=== PATIENT | female | born 1985 | race Caucasian/White ===

== ENCOUNTER → 2018-11-30 | Outpatient (CLI) | payer OTHER ==
[~2018-11-30] MED LIST: AMOX500 PO; CIPR500 PO; DEPO; FLUT.05NI; HYDCOR2.5B TOP; IBUP600 PO; NAPR500EC PO; OXYACE5T PO; PHENA200 PO; RXOXYACE PO; SULTRIDS PO; TRAM50 PO; ULTRAVATE TP
== END | disposition home or self-care (01) ==
LOC: LAB SHORT 15:05 → LAB EV 15:05
DX: N39.0 Urinary tract infection, site not specified (principal)
CPT/HCPCS: 87077; 87086; 87186

== ENCOUNTER 2019-11-26 16:35 | Inpatient (IN) | payer OTHER ==
[~2019-11-26] VITALS: Ht 160 cm; Wt 90.7 kg
[2019-11-26] MEDS ORDERED: EXPECTA PRENAT1 EACH PO (17:49)
[2019-11-26] MEDS ORDERED: TUMS500 MG (17:50)
[2019-11-26 17:58] LABS: BASOPHILS ABSOLUTE AUTO 0.04 K/mm3 (0.00-0.23); BASOPHILS PERCENT AUTO 0 % (0-2); EOSINOPHILS ABSOLUTE AUTO 0.02 K/mm3 (0.00-0.68); EOSINOPHILS PERCENT AUTO 0 % (0-6); Hematocrit 41.7 % (33.0-51.0); Hemoglobin 13.9 g/dL (11.5-16.0); IMMATURE GRAN PERCENT AUTO 1 % (0-1); LYMPHOCYTES ABSOLUTE AUTO 2.16 K/mm3 (0.84-5.20); LYMPHOCYTES PERCENT AUTO 12 % (21-46); MONOCYTES ABSOLUTE AUTO 1.29 K/mm3 (0.16-1.47); MONOCYTES PERCENT AUTO 7 % (4-13); Mean Corpuscular HGB 30.2 pg (26.0-34.0); Mean Corpuscular HGB Conc 33.3 g/dL (31.5-36.5); Mean Corpuscular Volume 91 fL (80-100); Mean Platelet Volume 9.6 fL (9.1-12.4); NEUTROPHILS ABSOLUTE AUTO 13.87 K/mm3 (1.96-9.15); NEUTROPHILS PERCENT AUTO 79 % (41-73); Platelet Count 348 K/mm3 (150-400); RDW Coefficient Variation 13.4 % (11.7-14.2); RDW Standard Deviation 44.8 fL (35.1-46.3); White Blood Cell Count 17.48 K/mm3 (4.00-11.30)
--- NOTE | 2019-11-26 19:17 | NUR ---
HERE WITH REPORT OF CONTRACTIONS ALL DAY THAT INCREASED IN SEVERITY AND FREQUENCY OVER THE PAST HOUR. ADMITTED IN ACTIVE LABOR
[2019-11-28 05:35] LABS: BASOPHILS ABSOLUTE AUTO 0.03 K/mm3 (0.00-0.23); BASOPHILS PERCENT AUTO 0 % (0-2); EOSINOPHILS PERCENT AUTO 1 % (0-6); Hemoglobin 10.7 g/dL (11.5-16.0); IMMATURE GRAN ABSOLUTE AUTO 0.12 K/mm3 (0.00-0.10); IMMATURE GRAN PERCENT AUTO 1 % (0-1); LYMPHOCYTES PERCENT AUTO 20 % (21-46); MONOCYTES ABSOLUTE AUTO 1.76 K/mm3 (0.16-1.47); MONOCYTES PERCENT AUTO 11 % (4-13); Mean Corpuscular HGB 30.1 pg (26.0-34.0); Mean Corpuscular HGB Conc 32.4 g/dL (31.5-36.5); Mean Corpuscular Volume 93 fL (80-100); Mean Platelet Volume 9.6 fL (9.1-12.4); NEUTROPHILS ABSOLUTE AUTO 10.45 K/mm3 (1.96-9.15); NEUTROPHILS PERCENT AUTO 67 % (41-73); Platelet Count 279 K/mm3 (150-400); RDW Coefficient Variation 13.6 % (11.7-14.2); Red Blood Cell Count 3.55 M/mm3 (3.80-5.20); White Blood Cell Count 15.56 K/mm3 (4.00-11.30)
[2019-11-28] MEDS ORDERED: IBUP800 PO (09:52)
--- NOTE | 2019-11-28 10:58 | NUR ---
DISCHARGE INSTRUCTIONS, WRITTEN AND VERBAL, GIVEN TO PT. ANSWERED ALL QUESTIONS AND CONCERNS. IV DISCONTINUED BY KNOCKOUT MACHINE OPERATOR. PT REFUSED NEEDING MOTRIN PRESCRIPTION. FOLLOW UP APPOINTMENT SCHEDULED. ALL PERSONAL BELONGINGS RETURNED. PT IS DISCHARGED HOME, DRIVEN BY Paola JENNINGS.
== END 2019-11-28 11:05 | disposition home or self-care (01) | DRG 807 ==
LOC: OBS 16:35 → BC 16:35 → OBS 17:24 → BC 17:26
PROVIDERS: ADMIT Nurse Practitioner Obstetrics & Gynecology
PROC: 10E0XZZ Delivery of Products of Conception, External Approach (ICD-10-PCS; principal; 2019-11-27)
PROC: 0UQG7ZZ Repair Vagina, Via Natural or Artificial Opening (ICD-10-PCS; 2019-11-27)
PROC: 3E0R3BZ Introduction of Anesthetic Agent into Spinal Canal, Percutaneous Approach (ICD-10-PCS; 2019-11-27)
DX: O71.4 Obstetric high vaginal laceration alone (principal); Z37.0 Single live birth; Z3A.40 40 weeks gestation of pregnancy
CPT/HCPCS: 36415; 51702; 59025; 85025; 86900; 86901; J1885; J2001; J2210; J2405; J3010; J7120

== ENCOUNTER 2025-06-03 01:00 | Emergency (ER) | payer OTHER ==
[~2025-06-03] VITALS: Ht 162.6 cm; Wt 61.2 kg
[~2025-06-03 01:00] MED LIST changes: +EXPECTA PRENAT1 EACH PO; +IBUP800 PO; +TUMS500 MG
[2025-06-03 02:04] LABS: Alanine Aminotransfer (ALT/SGP 19.0 U/L (12-78); Albumin, Blood 4.1 g/dL (3.4-5.0); Albumin/Globulin Ratio 1.2 (0.8-1.8); Anion Gap 8.0 mmol/L (3-11); Aspartate Aminotrans (AST/SGOT 9.0 U/L (12-37); Bilirubin, Total 0.3 mg/dL (0.1-1.0); Blood Urea Nitrogen 11.0 mg/dL (8-24); CO2, Blood 24.0 mmol/L (21-32); Calcium, Blood 9.0 mg/dL (8.5-10.1); Chloride, Blood 108.0 mmol/L (98-108); Creatinine, Blood 0.63 mg/dL (0.40-1.00); Globulin, Blood 3.4 g/dL (2.2-4.0); Glucose, Blood 146.0 mg/dL (70-99); Potassium, Blood 3.1 mmol/L (3.5-5.5); Sodium, Blood 137.0 mmol/L (136-145); Total Protein, Blood 7.5 g/dL (6.4-8.2)
[2025-06-03 02:16] LABS: BASOPHILS ABSOLUTE AUTO 0.04 K/mm3 (0.00-0.23); BASOPHILS PERCENT AUTO 0 % (0-2); EOSINOPHILS ABSOLUTE AUTO 0.02 K/mm3 (0.00-0.68); EOSINOPHILS PERCENT AUTO 0 % (0-6); Hematocrit 37.5 % (33.0-51.0); Hemoglobin 13.0 g/dL (11.5-16.0); IMMATURE GRAN ABSOLUTE AUTO 0.02 K/mm3 (0.00-0.10); IMMATURE GRAN PERCENT AUTO 0 % (0-1); LYMPHOCYTES ABSOLUTE AUTO 2.74 K/mm3 (0.84-5.20); LYMPHOCYTES PERCENT AUTO 25 % (21-46); MONOCYTES ABSOLUTE AUTO 0.98 K/mm3 (0.16-1.47); MONOCYTES PERCENT AUTO 9 % (4-13); Mean Corpuscular HGB Conc 34.7 g/dL (31.5-36.5); Mean Corpuscular Volume 88 fL (80-100); NEUTROPHILS ABSOLUTE AUTO 7.19 K/mm3 (1.96-9.15); NEUTROPHILS PERCENT AUTO 65 % (41-73); NRBC ABSOLUTE 0.00 K/mm3 (0.00-0.02); NRBC Auto 0.0 /100 WBC (0.0-0.2); Platelet Count 334 K/mm3 (150-400); RDW Coefficient Variation 12.1 % (11.7-14.2); RDW Standard Deviation 39.2 fL (35.1-46.3)
[2025-06-03] MEDS ORDERED: POTA20PAC PO (03:19)
[2025-06-03 03:45] VITALS: BP 120/90
== END 2025-06-03 03:52 | disposition home or self-care (01) ==
LOC: ER 01:00
PROVIDERS: Student in an Organized Health Care Education/Training Program
DX: R55 Syncope and collapse (principal); E87.6 Hypokalemia; F17.200 Nicotine dependence, unspecified, uncomplicated; Z88.1 Allergy status to other antibiotic agents
CPT/HCPCS: 80053; 85025; 93005; 93010; 99284-25; A9270

== ENCOUNTER 2025-06-07 13:00 | Emergency (ER) | payer OTHER ==
[~2025-06-07] VITALS: Ht 162.6 cm; Wt 61.2 kg
[~2025-06-07 13:00] MED LIST changes: +POTA20PAC PO
[2025-06-07 14:28] LABS: BASOPHILS ABSOLUTE AUTO 0.03 K/mm3 (0.00-0.23); BASOPHILS PERCENT AUTO 0 % (0-2); EOSINOPHILS ABSOLUTE AUTO 0.00 K/mm3 (0.00-0.68); EOSINOPHILS PERCENT AUTO 0 % (0-6); Hematocrit 41.2 % (33.0-51.0); Hemoglobin 14.0 g/dL (11.5-16.0); IMMATURE GRAN ABSOLUTE AUTO 0.05 K/mm3 (0.00-0.10); IMMATURE GRAN PERCENT AUTO 0 % (0-1); LYMPHOCYTES ABSOLUTE AUTO 1.49 K/mm3 (0.84-5.20); LYMPHOCYTES PERCENT AUTO 13 % (21-46); MONOCYTES ABSOLUTE AUTO 0.78 K/mm3 (0.16-1.47); MONOCYTES PERCENT AUTO 7 % (4-13); Mean Corpuscular HGB Conc 34.0 g/dL (31.5-36.5); Mean Corpuscular Volume 91 fL (80-100); NEUTROPHILS ABSOLUTE AUTO 9.44 K/mm3 (1.96-9.15); NEUTROPHILS PERCENT AUTO 80 % (41-73); NRBC ABSOLUTE 0.00 K/mm3 (0.00-0.02); NRBC Auto 0.0 /100 WBC (0.0-0.2); Platelet Count 332 K/mm3 (150-400); RDW Coefficient Variation 12.3 % (11.7-14.2); RDW Standard Deviation 40.8 fL (35.1-46.3)
[2025-06-07 14:46] LABS: Alanine Aminotransfer (ALT/SGP 20.0 U/L (12-78); Albumin, Blood 4.1 g/dL (3.4-5.0); Albumin/Globulin Ratio 1.1 (0.8-1.8); Anion Gap 6.0 mmol/L (3-11); Aspartate Aminotrans (AST/SGOT 9.0 U/L (12-37); Bilirubin, Total 0.3 mg/dL (0.1-1.0); Blood Urea Nitrogen 7.0 mg/dL (8-24); CO2, Blood 27.0 mmol/L (21-32); Calcium, Blood 9.0 mg/dL (8.5-10.1); Chloride, Blood 108.0 mmol/L (98-108); Creatinine, Blood 0.54 mg/dL (0.40-1.00); Globulin, Blood 3.8 g/dL (2.2-4.0); Glucose, Blood 106.0 mg/dL (70-99); Magnesium, Blood 2.0 mg/dL (1.6-2.4); Phosphorus, Blood 2.0 mg/dL (2.5-4.9); Potassium, Blood 3.7 mmol/L (3.5-5.5); Sodium, Blood 137.0 mmol/L (136-145); Total Protein, Blood 7.9 g/dL (6.4-8.2)
[2025-06-07] MEDS ORDERED: Diazepam 5 MG / ML 2ML SYR IV ONE (16:50)
[2025-06-07 18:18] VITALS: BP 136/84
[2025-06-07] MEDS ORDERED: HYDHCL25 PO (18:36)
== END 2025-06-07 18:39 | disposition home or self-care (01) ==
LOC: ER 13:00
PROVIDERS: Physician Assistant
DX: F41.9 Anxiety disorder, unspecified (principal); E83.39 Other disorders of phosphorus metabolism; F45.8 Other somatoform disorders; F17.200 Nicotine dependence, unspecified, uncomplicated; Z88.1 Allergy status to other antibiotic agents; Z79.899 Other long term (current) drug therapy
CPT/HCPCS: 80053; 83735; 84100; 85025; 93005; 93010; 96374; 99284-25; A9270; J3360

== ENCOUNTER → 2025-07-26 | Outpatient (CLI) | payer OTHER ==
[~2025-07-26] MED LIST changes: +HYDHCL25 PO
[2025-07-26 13:38] LABS: BASOPHILS ABSOLUTE AUTO 0.03 K/mm3 (0.00-0.23); BASOPHILS PERCENT AUTO 0 % (0-2); EOSINOPHILS ABSOLUTE AUTO 0.11 K/mm3 (0.00-0.68); EOSINOPHILS PERCENT AUTO 1 % (0-6); Hematocrit 40.9 % (33.0-51.0); Hemoglobin 13.8 g/dL (11.5-16.0); IMMATURE GRAN ABSOLUTE AUTO 0.03 K/mm3 (0.00-0.10); IMMATURE GRAN PERCENT AUTO 0 % (0-1); LYMPHOCYTES ABSOLUTE AUTO 1.77 K/mm3 (0.84-5.20); LYMPHOCYTES PERCENT AUTO 19 % (21-46); MONOCYTES ABSOLUTE AUTO 1.06 K/mm3 (0.16-1.47); MONOCYTES PERCENT AUTO 11 % (4-13); Mean Corpuscular HGB Conc 33.7 g/dL (31.5-36.5); Mean Corpuscular Volume 91 fL (80-100); NEUTROPHILS ABSOLUTE AUTO 6.32 K/mm3 (1.96-9.15); NEUTROPHILS PERCENT AUTO 68 % (41-73); NRBC ABSOLUTE 0.00 K/mm3 (0.00-0.02); NRBC Auto 0.0 /100 WBC (0.0-0.2); Platelet Count 307 K/mm3 (150-400); RDW Coefficient Variation 12.5 % (11.7-14.2); RDW Standard Deviation 41.4 fL (35.1-46.3)
[2025-07-26 16:14] LABS: Anion Gap 9.0 mmol/L (3-11); Blood Urea Nitrogen 8.0 mg/dL (8-24); CO2, Blood 31.0 mmol/L (21-32); Calcium, Blood 9.1 mg/dL (8.5-10.1); Chloride, Blood 102.0 mmol/L (98-108); Creatinine, Blood 0.64 mg/dL (0.40-1.00); Glucose, Blood 94.0 mg/dL (70-99); Potassium, Blood 4.0 mmol/L (3.5-5.5); Sodium, Blood 138.0 mmol/L (136-145)
== END ==
LOC: LAB 13:33 → LAB SHORT 13:33
PROVIDERS: Family Medicine
DX: L03.116 Cellulitis of left lower limb (principal)
CPT/HCPCS: 80048; 83880; 85025; 86140

== ENCOUNTER → 2025-09-08 | Outpatient (CLI) | payer OTHER ==
[2025-09-08 16:23] LABS: Bacterial Vaginosis PCR Negative (NEGATIVE); Candida Group, PCR NOT DETECTED (NOT DETECT); Candida glabrata-krusei, PCR NOT DETECTED (NOT DETECT)
[2025-09-08 17:05] LABS: Chlamydia Trachomatis Vaginal NOT DETECTED (NOT DETECT); Neisseria Gonorrhoea Vaginal NOT DETECTED (NOT DETECT)
== END ==
LOC: LAB 13:06 → LAB SHORT 13:06
PROVIDERS: Registered Nurse Community Health
DX: N89.8 Other specified noninflammatory disorders of vagina (principal)
CPT/HCPCS: 81515; 87070; 87077; 87147; 87186; 87205; 87491; 87591

== ENCOUNTER 2025-10-27 16:07 | Emergency (ER) | payer OTHER ==
[~2025-10-27] VITALS: Ht 162.6 cm; Wt 61.2 kg
[2025-10-27 16:44] VITALS: BP 129/92
[2025-10-27 17:55] LABS: BASOPHILS ABSOLUTE AUTO 0.03 K/mm3 (0.00-0.23); BASOPHILS PERCENT AUTO 1 % (0-2); EOSINOPHILS ABSOLUTE AUTO 0.02 K/mm3 (0.00-0.68); EOSINOPHILS PERCENT AUTO 0 % (0-6); Hematocrit 43.5 % (33.0-51.0); Hemoglobin 15.1 g/dL (11.5-16.0); IMMATURE GRAN ABSOLUTE AUTO 0.03 K/mm3 (0.00-0.10); IMMATURE GRAN PERCENT AUTO 1 % (0-1); LYMPHOCYTES ABSOLUTE AUTO 1.59 K/mm3 (0.84-5.20); LYMPHOCYTES PERCENT AUTO 32 % (21-46); MONOCYTES ABSOLUTE AUTO 0.48 K/mm3 (0.16-1.47); MONOCYTES PERCENT AUTO 10 % (4-13); Mean Corpuscular HGB Conc 34.7 g/dL (31.5-36.5); Mean Corpuscular Volume 88 fL (80-100); NEUTROPHILS ABSOLUTE AUTO 2.81 K/mm3 (1.96-9.15); NEUTROPHILS PERCENT AUTO 57 % (41-73); NRBC ABSOLUTE 0.00 K/mm3 (0.00-0.02); NRBC Auto 0.0 /100 WBC (0.0-0.2); RDW Coefficient Variation 12.3 % (11.7-14.2); RDW Standard Deviation 39.5 fL (35.1-46.3)
[2025-10-27 18:11] LABS: Alanine Aminotransfer (ALT/SGP 33.0 U/L (12-78); Albumin, Blood 4.0 g/dL (3.4-5.0); Albumin/Globulin Ratio 1.0 (0.8-1.8); Anion Gap 8.0 mmol/L (3-11); Aspartate Aminotrans (AST/SGOT 28.0 U/L (12-37); Bilirubin, Total 0.3 mg/dL (0.1-1.0); Blood Urea Nitrogen 6.0 mg/dL (8-24); CO2, Blood 26.0 mmol/L (21-32); Calcium, Blood 9.0 mg/dL (8.5-10.1); Chloride, Blood 105.0 mmol/L (98-108); Creatinine, Blood 0.59 mg/dL (0.40-1.00); Globulin, Blood 4.0 g/dL (2.2-4.0); Glucose, Blood 102.0 mg/dL (70-99); Potassium, Blood 3.6 mmol/L (3.5-5.5); Sodium, Blood 135.0 mmol/L (136-145); Total Protein, Blood 8.0 g/dL (6.4-8.2)
[2025-10-27 18:13] LABS: Platelet Count 296 K/mm3 (150-400)
== END 2025-10-27 20:02 | disposition home or self-care (01) ==
LOC: ER 16:07
PROVIDERS: Physician Assistant
DX: R20.2 Paresthesia of skin (principal); T43.015A Adverse effect of tricyclic antidepressants, initial encounter; T39.8X5A Adverse effect of other nonopioid analgesics and antipyretics, not elsewhere classified, initial encounter; Z88.1 Allergy status to other antibiotic agents; Z79.899 Other long term (current) drug therapy
CPT/HCPCS: 80053; 85025; 99283-25